=== PATIENT | female | born 1975 | race Caucasian/White ===

== ENCOUNTER 2016-05-13 22:26 | Emergency (ER) | payer OTHER ==
[2016-05-13 22:49] VITALS: BP 133/74; PULSE 92; TEMP 98; BMI 38.4
[2016-05-13] MEDS ORDERED: KETOROLAC TROMETHAMINE 60 MG/2 ML VIAL IM ONE (23:28)
[2016-05-13] MEDS ORDERED: KETOROLAC TROMETHAMINE 60 MG/2 ML VIAL ONE (23:35)
--- NOTE | 2016-05-14 00:48 | PDOC ---
History of Present Illness - General History Source: Patient Exam Limitations: No Limitations <Boris Morillo - Last Filed: 05/14/16 00:48> - General History Source: Patient Exam Limitations: No Limitations - History of Present Illness Initial Comments: 05/14/16 01:12 The patient is a 41 year old female, with a significant past medical history of scoliosis, kyphosis, sciatica, prior back surgeries, anxiety and depression, who presents to the emergency department with back pain which began last night but has progressively worsened throughout the day today. The patient reports that the pain abruptly yesterday in her lower back and radiates down her right leg. Patient states that these symptoms are consistent with her prior sciatica flare ups. The patient states that the pain is worse with flexion. The patient denies any numbness, tingling or weakness in the lower extremities. The patient denies fever or chills. Allergies: Naproxen, Vancomycin. Past Surgical History: Back surgeries. Social History: Current everyday smoker. Denies alcohol or drug use. PCP: Dr. Cosme <Anita Doran - Last Filed: 05/14/16 01:15> - General Chief Complaint: Pain, Acute Stated Complaint: PAIN Time Seen by Provider: 05/13/16 23:28 Past History - Psycho/Social/Smoking Cessation Hx Suicidal Ideation: No Smoking History: Current every day smoker Number of Cigarettes Smoked Daily: 20 Information on smoking cessation initiated: No Hx Alcohol Use: No Drug/Substance Use Hx: No <Boris Morillo - Last Filed: 05/14/16 00:48> <Anita Doran - Last Filed: 05/14/16 01:15> - Past Medical History Allergies/Adverse Reactions: Allergies Allergy/AdvReac Type Severity Reaction Status Date / Time naproxen [From Naprosyn] Allergy Verified 05/13/16 22:42 vancomycin Allergy Verified 05/13/16 22:39 Home Medications: Ambulatory Orders Escitalopram Oxalate [Lexapro -] 100 mg PO DAILY 05/13/16 Gabapentin [Neurontin] 600 mg PO BID 05/13/16 Trazodone HCl [Oleptro ER] 150 mg PO HS 05/13/16 Review of Systems - Review of Systems Able to Perform ROS?: Yes Comments:: 05/14/16 01:13 GENERAL/CONSTITUTIONAL: No fever or chills. No weakness. HEAD, EYES, EARS, NOSE AND THROAT: No change in vision. No ear pain or discharge. No sore throat. CARDIOVASCULAR: No chest pain or shortness of breath. RESPIRATORY: No cough, wheezing, or hemoptysis. GASTROINTESTINAL: No nausea, vomiting, diarrhea or constipation. GENITOURINARY: No dysuria, frequency, or change in urination. MUSCULOSKELETAL: +Back pain. No joint or muscle swelling or pain. No neck pain. SKIN: No rash. NEUROLOGIC: No headache, vertigo, loss of consciousness, or change in strength/ sensation. ENDOCRINE: No increased thirst. No abnormal weight change. HEMATOLOGIC/LYMPHATIC: No anemia, easy bleeding, or history of blood clots. ALLERGIC/IMMUNOLOGIC: No hives or skin allergy. <Anita Doran - Last Filed: 05/14/16 01:15> *Physical Exam - Vital Signs Last Vital Signs Temp Pulse Resp BP Pulse Ox 98.0 F 92 H 12 133/74 97 05/13/16 22:42 05/13/16 22:42 05/13/16 22:42 05/13/16 22:42 05/13/16 22:42 <Boris Morillo - Last Filed: 05/14/16 00:48> - Vital Signs Last Vital Signs Temp Pulse Resp BP Pulse Ox 98.0 F 92 H 12 133/74 97 05/13/16 22:42 05/13/16 22:42 05/13/16 22:42 05/13/16 22:42 05/13/16 22:42 - Physical Exam Comments: 05/14/16 01:13 GENERAL: Awake, alert, and fully oriented, in no acute distress. HEAD: No signs of trauma. EYES: PERRLA, EOMI, sclera anicteric, conjunctiva clear. ENT: Auricles normal inspection, hearing grossly normal, nares patent, oropharynx clear without exudates. Moist mucosa. NECK: Normal ROM, supple, no lymphadenopathy, JVD, or masses. LUNGS: Breath sounds equal, clear to auscultation bilaterally. No wheezes, and no crackles. HEART: Regular rate and rhythm, normal S1 and S2, no murmurs, rubs or gallops. ABDOMEN: Soft, nontender, normoactive bowel sounds. No guarding, no rebound. No masses. MUSCULOSKELETAL: Lumbar tenderness to palpation. Right buttocks tenderness to palpation, consistent with her sciatica. EXTREMITIES: Normal range of motion, no edema. No clubbing or cyanosis. No cords , erythema, or tenderness. NEUROLOGICAL: Cranial nerves II through XII grossly intact. Normal speech, normal gait. SKIN: Warm, dry, normal turgor, no rashes or lesions noted. <Anita Doran - Last Filed: 05/14/16 01:15> ED Treatment Course - ADDITIONAL ORDERS Additional order review: Laboratory Results 05/13/16 22:50 Urine Color Cancelled Urine Appearance Cancelled Urine pH Cancelled Ur Specific [place] Cancelled Urine Protein Cancelled Urine Glucose (UA) Cancelled Urine Clinitest Cancelled Urine Ketones Cancelled Urine Blood Cancelled Urine Nitrite Cancelled Urine Bilirubin Cancelled Urine Ictotest Cancelled Prot Sulfosalicylic Acd Cancelled Urine Urobilinogen Cancelled Ur Leukocyte Esterase Cancelled Urine HCG, Qual Negative - Medications Given in the ED: ED Medications Discontinued Medications Generic Name Dose Route Start Last Admin Trade Name Freq PRN Reason Stop Dose Admin Ketorolac Tromethamine 60 mg 05/13/16 23:28 05/14/16 00:02 Toradol Injection - IM 05/13/16 23:29 60 mg ONCE ONE Administration <Boris Morillo - Last Filed: 05/14/16 00:48> - ADDITIONAL ORDERS Additional order review: Laboratory Results 05/13/16 22:50 Urine Color Cancelled Urine Appearance Cancelled Urine pH Cancelled Ur Specific [place] Cancelled Urine Protein Cancelled Urine Glucose (UA) Cancelled Urine Clinitest Cancelled Urine Ketones Cancelled Urine Blood Cancelled Urine Nitrite Cancelled Urine Bilirubin Cancelled Urine Ictotest Cancelled Prot Sulfosalicylic Acd Cancelled Urine Urobilinogen Cancelled Ur Leukocyte Esterase Cancelled Urine HCG, Qual Negative - Medications Given in the ED: ED Medications Discontinued Medications Generic Name Dose Route Start Last Admin Trade Name Freq PRN Reason Stop Dose Admin Ketorolac Tromethamine 60 mg 05/13/16 23:28 05/14/16 00:02 Toradol Injection - IM 05/13/16 23:29 60 mg ONCE ONE Administration <Anita Doran - Last Filed: 05/14/16 01:15> Medical Decision Making - Medical Decision Making 05/14/16 00:48 A portion of this note was documented by scribe services under my direction. I have reviewed the details of the note, within reason, and agree with the documentation with the following case summary and management plan written by me. Patient treated in the ED. Nursing notes are reviewed and incorporated into the medical decision-making. Vital signs reviewed. Peripheral IV access obtained by the nurse, laboratory studies are drawn and sent, reviewed and interpreted by myself. Vital Signs Temp Pulse Resp BP Pulse Ox 98.0 F 92 H 12 133/74 97 05/13/16 22:42 05/13/16 22:42 05/13/16 22:42 05/13/16 22:42 05/13/16 22:42 41 year old female with history of scoliosis, prior back surgeries, and sciatica. States that the pain worsened yesterday and worse with flexion. Pain starts in lower back and shoots to posterior R leg consistent with her sciatica. Patient reports that pain can occur without any obvious inciting factor. She reports that toradol works well for her in the past. Patient is NOT allergic to toradol. PGU negative. Pt given toradol and now feels significantly better. Will d/c. The patient has follow up with her doctors. I discussed the physical exam findings, ancillary test results and final diagnoses with the patient. I answered all of the patient's questions. The patient was satisfied with the care received and felt comfortable with the discharge plan and treatment plan. The patient will call their primary care physician within 24 hours to arrange follow-up and will return to the Emergency Department with any new, persistant or worsening symptoms. <Boris Morillo - Last Filed: 05/14/16 00:48> *DC/Admit/Observation/Transfer - Discharge Dispostion Admit: No <Boris Morillo - Last Filed: 05/14/16 00:48> - Attestations Scribe Attestion: 05/14/16 01:04 Documentation prepared by Anita Doran, acting as biomedical engineering aide for Boris Morillo MD. <Anita Doran - Last Filed: 05/14/16 01:15> Diagnosis at time of Disposition: Sciatica Qualifiers: Laterality: right Qualified Code(s): M54.31 - Sciatica, right side - Discharge Dispostion Disposition: HOME Condition at time of disposition: Improved - Referrals Referrals: Abdi Cosme MD [Primary Care Provider] - - Patient Instructions Printed Discharge Instructions: DI for Sciatica, DI for Back Pain With Sciatica Additional Instructions: It was a pleasure meeting you. Please feel better. Follow up with your back doctors. Call to schedule an appointment.
== END 2016-05-14 00:57 | disposition home or self-care (01) ==
LOC: JER 22:26
PROC: 3E0233Z Introduction of Anti-inflammatory into Muscle, Percutaneous Approach (ICD-10-PCS; principal; 2016-05-13)
DX: M54.41 Lumbago with sciatica, right side (principal); F17.210 Nicotine dependence, cigarettes, uncomplicated; Z87.39 Personal history of other diseases of the musculoskeletal system and connective tissue
CPT/HCPCS: 81003; 84703; 96372; 99281-25; 99282-25

== ENCOUNTER 2018-07-10 08:47 | Emergency (ER) | payer OTHER ==
[2018-07-10 09:34] VITALS: TEMP 98.3; BMI 34.7
--- NOTE | 2018-07-10 09:39 | PDOC ---
History of Present Illness - General Chief Complaint: Vaginal Bleeding Stated Complaint: BLEEDING Time Seen by Provider: 07/10/18 09:02 History Source: Patient Exam Limitations: No Limitations - History of Present Illness Initial Comments: 07/10/18 12:37 Pt is a 43yo F with PMH of anxiety presenting to ED for heavy bleeding today from 6am to 9am using 10 pads. Is saturating pads and is seeing clots. Also experiencing lower abdominal cramping. She had similar symptoms last month on the first day of her period but it did not bleed as much as today. She endorses lighheadedness and nausea. Denies palpitations, syncope, chest pain, sob, injuries, vaginal discharge, fevers, chills. Sister has fibroids. No clotting or bleeding d/o in the family. PMD: [facility] OBGYN: [facility] PMH: see hpi PSH: tubal ligation Meds: see med rec Allergies: vanc, naproxen Social: denies Past History - Past Medical History Allergies/Adverse Reactions: Allergies Allergy/AdvReac Type Severity Reaction Status Date / Time naproxen [From Naprosyn] Allergy Verified 07/10/18 09:04 vancomycin Allergy Verified 07/10/18 09:04 Home Medications: Ambulatory Orders Escitalopram Oxalate [Lexapro -] 100 mg PO DAILY 05/13/16 Gabapentin [Neurontin] 600 mg PO BID 05/13/16 Trazodone HCl [Oleptro ER] 150 mg PO HS 05/13/16 Ferrous Sulfate 325 mg PO DAILY #7 tablet 07/10/18 Tramadol HCl 50 mg PO BID #4 tablet MDD 2 07/10/18 COPD: No Psychiatric Problems: Yes (anxiety,) Other medical history: fibromyalgia - Suicide/Smoking/Psychosocial Hx Smoking History: Current every day smoker Number of Cigarettes Smoked Daily: 20 Information on smoking cessation initiated: No Hx Alcohol Use: No Drug/Substance Use Hx: No Review of Systems - Review of Systems Constitutional: No: Symptoms Reported HEENTM: No: Symptoms Reported Respiratory: No: SOB with Exertion Cardiac (ROS): Yes: Lightheadedness ABD/GI: Yes: Abdominal cramping : Yes: Symptoms Reported, See HPI Musculoskeletal: Yes: Back Pain Integumentary: No: Symptoms Reported Neurological: No: Symptoms reported *Physical Exam - Vital Signs Last Vital Signs Temp Pulse Resp BP Pulse Ox 98.3 F 87 16 123/76 100 07/10/18 09:15 07/10/18 09:15 07/10/18 09:15 07/10/18 09:15 07/10/18 09:15 - Physical Exam General Appearance: Yes: Nourished, Appropriately Dressed, Moderate Distress HEENT: positive: EOMI, STEFF. negative: Pale Conjunctivae Neck: positive: Trachea midline, Supple. negative: Lymphadenopathy (R), Lymphadenopathy (L) Respiratory/Chest: positive: Lungs Clear, Normal Breath Sounds Cardiovascular: positive: Regular Rhythm, Regular Rate, S1, S2. negative: Edema , JVD, Murmur Gastrointestinal/Abdominal: positive: Normal Bowel Sounds, Soft, Tenderness ( suprapubic, LLQ) Musculoskeletal: negative: CVA Tenderness Extremity: positive: Normal Capillary Refill, Pelvis Stable. negative: Pedal Edema, Swelling Integumentary: positive: Normal Color, Dry, Warm. negative: Pale Neurologic: positive: contracting support specialist II-XII NML intact, Fully Oriented, Alert, Normal Mood/ Affect, Normal Response, Motor Strength 5/5 Moderate Sedation - Procedure Monitoring Vital Signs: Procedure Monitoring Vital Signs Temperature 98.3 F 07/10/18 09:15 Pulse Rate 87 07/10/18 09:15 Respiratory Rate 16 07/10/18 09:15 Blood Pressure 123/76 07/10/18 09:15 O2 Sat by Pulse Oximetry (%) 100 07/10/18 09:15 ED Treatment Course - LABORATORY CBC & Chemistry Diagram: 07/10/18 09:34 07/10/18 09:34 Medical Decision Making - Medical Decision Making 07/11/18 22:20 Pt is a 43yo F with PMH of anxiety presenting to ED for heavy bleeding today from 6am to 9am using 10 pads. Is saturating pads and is seeing clots. Also experiencing lower abdominal cramping. She had similar symptoms last month on the first day of her period but it did not bleed as much as today. She endorses lighheadedness and nausea. Denies palpitations, syncope, chest pain, sob, injuries, vaginal discharge, fevers, chills. Sister has fibroids. No clotting or bleeding d/o in the family. Vitals: wnl PE: heavy vaginal bleeding as seen in pads. Pt did not want pelvic exam due to bleeding. suprapubic and LLQ abdominal tenderness. ddx includes but not limited to ectopic , spontaneous , fibroids, uterine pathology, bleeding disorder -low suspicion for infectious processes. -cbc, cmp, serum , cogas, t+s -tvus -zofran hgb 14. not . TVUS shows [id number] mass could be leiomyoma v. other pathology. Called Dr. Garrison office, Dr conical mixer recommended iron pills and f/u in office. Per pt mom, pt is bleeding less now. Will give tramadol for pain and iron pills. Pt has appt in the morning. Can be dc home. given return precautions. 07/11/18 22:22 *DC/Admit/Observation/Transfer Diagnosis at time of Disposition: Vaginal bleeding - Discharge Dispostion Disposition: HOME Condition at time of disposition: Good Decision to Admit order: No - Prescriptions Prescriptions: Ferrous Sulfate 325 mg PO DAILY #7 tablet Tramadol HCl 50 mg PO BID #4 tablet MDD 2 - Referrals Referrals: Abdi Cosme MD [Non Staff, Medical] - Daniel Del Rosario MD [Staff Physician] - - Patient Instructions Printed Discharge Instructions: DI for Vaginal Bleeding Additional Instructions: You were seen in the emergency room today for vaginal bleeding. This is most likely caused by a growth in the uterus. Please make sure you make an appointment with your SECURITY SALES CONSULTANT. Keep your appointment for tomorrow. A prescription for a pain medication and for iron pills was sent to your pharmacy. Please take as directed. Come back to the emergency room if bleeding gets worse, you feel lightheaded, you pass out or if any new concerning symptom develops. Thank you - Post Discharge Activity
[2018-07-10 09:43] LABS: BASO % 0.8 % (0-2.0); EOS % 8.4 % (0-4.5); HEMATOCRIT 40.5 % (32.4-45.2); LYMPH % 20.2 % (8-40); MCH 32.4 pg (25.7-33.7); MCHC 34.6 g/dl (32.0-36.0); MEAN CELL VOLUME 93.7 fl (80-96); MEAN PLT VOLUME 8.3 fl (7.5-11.1); MONO % 6.8 % (3.8-10.2); NEUT % 63.8 % (42.8-82.8); PLATELET COUNT 235 K/MM3 (134-434); RBC 4.33 M/mm3 (3.60-5.2); RDW 13.4 % (11.6-15.6); WHITE BLOOD COUNT 10.1 K/mm3 (4.0-10.0)
[2018-07-10 09:55] LABS: INR 1.02 (0.83-1.09)
[2018-07-10 09:58] LABS: ACTIVATED PTT 33.2 SECONDS (25.2-36.5)
[2018-07-10 10:22] LABS: ALBUMIN 3.7 g/dl (3.4-5.0); ALK PHOS 72 U/L (45-117); ANION GAP 8 MMOL/L (8-16); BILIRUBIN,TOTAL 0.4 mg/dL (0.2-1); BLOOD UREA NITROGEN 14 mg/dL (7-18); CALCIUM 8.7 mg/dL (8.5-10.1); CHLORIDE 111 mmol/L (98-107); CO2 21 mmol/L (21-32); CREATININE 0.7 mg/dL (0.55-1.3); GLUCOSE,RANDOM 91 mg/dL (74-106); POTASSIUM 4.1 mmol/L (3.5-5.1); SGOT/AST 19 U/L (15-37); SGPT/ALT 17 U/L (13-61); SODIUM 140 mmol/L (136-145); TOT PROT 7.2 g/dl (6.4-8.2)
[2018-07-10] MEDS ORDERED: ONDANSETRON 4 MG/2 ML VIAL IVPB ONE (11:21)
[2018-07-10] MEDS ORDERED: ONDANSETRON 4 MG/2 ML VIAL ONE (11:24)
[2018-07-10] MEDS ORDERED: traMADol HCL 50 MG TABLET PO ONE (13:03)
[2018-07-10] MEDS ORDERED: traMADol HCL 50 MG TABLET ONE (13:07)
[2018-07-10 13:37] VITALS: BP 120/70; PULSE 90
== END 2018-07-10 13:47 | disposition home or self-care (01) ==
LOC: JER 08:47
PROC: 3E033GC Introduction of Other Therapeutic Substance into Peripheral Vein, Percutaneous Approach (ICD-10-PCS; principal; 2018-07-10)
DX: N93.8 Other specified abnormal uterine and vaginal bleeding (principal); M79.7 Fibromyalgia
CPT/HCPCS: 36415; 76830-TC; 80053; 84703; 85025; 85610; 85730; 96374; 99283-25

== ENCOUNTER 2019-02-07 21:23 | Emergency (ER) | payer OTHER ==
[2019-02-07 21:33] VITALS: BMI 34.6
--- NOTE | 2019-02-07 21:35 | PDOC ---
Rapid Medical Evaluation Chief Complaint: Allergic Reaction Time Seen by Provider: 02/07/19 21:30 Medical Evaluation: Allergies Allergy/AdvReac Type Severity Reaction Status Date / Time naproxen [From Naprosyn] Allergy Verified 07/10/18 09:04 vancomycin Allergy Verified 07/10/18 09:04 02/07/19 21:31 I have performed a brief in-person evaluation of this patient. The patient presents with a chief complaint of: acute allergic reaction to zithromax, onset within 30mins Pertinent physical exam findings: Itching, hives generalized - some wheezing I have ordered the following: taken to emergency room for immediate eval and treatment The patient will proceed to the ED for further evaluation. Discharge Disposition - Diagnosis Allergic reaction caused by a drug - Referrals - Patient Instructions - Post Discharge Activity
[2019-02-07] MEDS ORDERED: methylPREDNISolone NA SUCC 125 MG/2 ML VIAL IVPB ONE (21:39)
[2019-02-07] MEDS ORDERED: SODIUM CHLORIDE 0.9% 500 ML INFUS.BAG IV ONE (21:42)
--- NOTE | 2019-02-07 21:45 | PDOC ---
Attending Attestation - Resident Resident Name: Rolando Maki - ED Attending Attestation I have performed the following: I have examined & evaluated the patient, The case was reviewed & discussed with the resident, I agree w/resident's findings & plan, Exceptions are as noted - HPI HPI: 02/07/19 21:41 44y F fibromyalgia presents with suspected allergic reaction. Pt was her PMDs office with complaints of a cough for 2 days assoc with subjective fever and nasal congestion, was given a dose of IV abx and sent home. At home pt started having some itching, took benadryl with some improvement. Pt took azythromycin at home prior to arrival with itching/rash on her torso/chest/arm and came to the ED for evaluation. The patient was noted to be significantly tachycardic in triage and brought back to the ED immediately. Pt denies any sob, voice changes , cp, vomiting, abd pain, coughing. Pt with prior history of allergy to vancomycin where she turns red and there is mild swelling. PMD Rajinder - Physicial Exam PE: 02/07/19 21:59 Physical Exam: GENERAL: The patient is awake, alert, and fully oriented, Nontoxic - in no acute distress. HEAD: Normocephalic, atraumatic. EYES: extraocular movements intact, sclera anicteric, conjunctiva clear. ENT: Normal voice, Moist mucous membranes. airway patent NECK: Normal range of motion, supple LUNGS: scattered wheeze on the L lung, but clear otherwise, no acute respiratory distress HEART: tachycardic, normal S1 and S2 without murmur, rub or gallop. ABDOMEN: Soft, nontender, No guarding, no rebound. No CVA tenderness EXTREMITIES: Normal range of motion, no edema. NEUROLOGICAL: No facial assymetry, Normal speech, PSYCH: Normal mood, normal affect. SKIN: erythemadous plaques on chest/back, L arm - Critical Care Time Total Critical Care Time: 45 Critical Care Statement: The care of this patient involved high complexity decision making to prevent further life threatening deterioration of the patient 's condition and/or to evaluate & treat vital organ system(s) failure or risk of failure. - Medical Decision Making 02/07/19 21:59 A&P suspect allergic reaction - primaryl cutaneous - will give solumedrol/pepcid /bandryl, will give fluids placed on historical manuscripts curator will obtin labs, cxr to eval for pna consider dc azithromycin vs change abx - but suspect her cough may be viral with cough w 02/07/19 23:13 pt doing well pts cxr noted for very mild blunting of LLL - will change her meds to augmentin
--- NOTE | 2019-02-07 21:48 | PDOC ---
History of Present Illness - General Chief Complaint: Allergic Reaction Stated Complaint: ALLERGIC REACTION Time Seen by Provider: 02/07/19 21:30 - History of Present Illness Initial Comments: The pt is a 44F w/ a history of fibromyalgia who presents for evaluation of rash and itching s/p azithromycin. The pt was seen in Dr. Calvillo's office was given an IV abx and sent home with a prescription for azithromycin. The pt took an initial does, had a rash with itching, called Dr. Calvillo's office, took Benadryl and had resolution of symptoms. She took her second dose this evening, had repeat rash, and decided to present to the ED. She denies trouble breathing , difficulty swallowing, or chest tightness. She endorses an allergy to Vanc and naproxen. 02/07/19 21:42 02/07/19 21:48 Past History - Past Medical History Allergies/Adverse Reactions: Allergies Allergy/AdvReac Type Severity Reaction Status Date / Time naproxen [From Naprosyn] Allergy Verified 07/10/18 09:04 vancomycin Allergy Verified 07/10/18 09:04 Home Medications: Ambulatory Orders Escitalopram Oxalate [Lexapro -] 100 mg PO DAILY 05/13/16 Gabapentin [Neurontin] 600 mg PO BID 05/13/16 Trazodone HCl [Oleptro ER] 150 mg PO HS 05/13/16 Ferrous Sulfate 325 mg PO DAILY #7 tablet 07/10/18 Tramadol HCl 50 mg PO BID #4 tablet MDD 2 07/10/18 Amoxicillin/Potassium Clav [Augmentin 875-125 Tablet] 1 each PO BID 5 Days #10 tablet 02/07/19 COPD: No Psychiatric Problems: Yes (anxiety,) - Psycho Social/Smoking Cessation Hx Smoking History: Current every day smoker Number of Cigarettes Smoked Daily: 20 Information on smoking cessation initiated: No Hx Alcohol Use: No Drug/Substance Use Hx: No Review of Systems - Review of Systems Able to Perform ROS?: Yes Comments:: GENERAL/CONSTITUTIONAL: +several days of fever; No weakness HEAD, EYES, EARS, NOSE AND THROAT: No change in vision. No change in hearing. No sore throat CARDIOVASCULAR: No chest pain or shortness of breath RESPIRATORY: +cough; Denies hemoptysis GASTROINTESTINAL: No nausea, vomiting, diarrhea or constipation GENITOURINARY: No dysuria, frequency, or change in urination MUSCULOSKELETAL: No joint or muscle swelling or pain. No neck or back pain SKIN: diffuse rash NEUROLOGIC: No headache, vertigo, loss of consciousness, or change in strength/ sensation ENDOCRINE: No increased thirst. No abnormal weight change HEMATOLOGIC/LYMPHATIC: No anemia, easy bleeding, or history of blood clots ALLERGIC/IMMUNOLOGIC: rash after taking azithromycin 02/07/19 21:46 Is the patient limited [place] proficient: No *Physical Exam - Vital Signs Last Vital Signs Temp Pulse Resp BP Pulse Ox 98.2 F 144 H 19 117/72 99 02/07/19 21:31 02/07/19 21:31 02/07/19 21:31 02/07/19 21:31 02/07/19 21:31 - Physical Exam Comments: GENERAL: Awake, alert, and oriented to person/place/time, in no acute distress HEAD: No signs of trauma, normocephalic, atraumatic EYES: PERRLA, EOMI, sclera anicteric, conjunctiva clear ENT: Hearing grossly normal, nares patent, oropharynx clear without exudates or edema. No uvular deviation. Moist mucosa LUNGS: No distress, speaks in full sentences, slight scatter wheeze heard LLL HEART: Tachycardic rate with regular rhythm, normal S1 and S2, no murmurs appreciated, peripheral pulses normal and equal bilaterally ABDOMEN: Soft, nontender, normoactive bowel sounds. No guarding, no rebound EXTREMITIES: Normal inspection, Normal range of motion, no edema. No clubbing or cyanosis NEUROLOGICAL: Cranial nerves II through XII grossly intact. Normal speech, normal gait, no focal sensorimotor deficits SKIN: urticarial rash noted over RUE, mildly BLE, chest, abdomen, and back 02/07/19 21:47 ED Treatment Course - LABORATORY CBC & Chemistry Diagram: 02/07/19 21:49 02/07/19 21:49 Medical Decision Making - Medical Decision Making The pt is a 44F w/ a history of fibromyalgia and recent fevers/cough who presents for rash and itching s/p azithromycin this evening ED Course Labs sent Benadryl, Pepcid, Solumedrol, and IVF for symptomatic relief CXR to evaluate for PNA 02/07/19 22:08 Pt w/ persistent mild L wheeze and questionable opacity in LLL -Will give Augmentin for CAP, and observe for reaction Pt feels improved at this time, no longer has itching, and rash is improving No anemia Lytes unremarkable LFTs wnl No ENDER 02/07/19 23:16 Pt continues to feel improved and does not have recurrent symptoms s/p Augmentin Rx for abx sent to pt's pharmacy Plan for D/C w/ PCP f/u Discharge instructions and return precautions given Patient in agreement and verbalized understanding Dispo: Home 02/07/19 23:42 Discharge - Discharge Information Problems reviewed: Yes Clinical Impression/Diagnosis: Allergic reaction caused by a drug Qualifiers: Encounter type: initial encounter Qualified Code(s): T78.40XA - Allergy, unspecified, initial encounter Pneumonia Qualifiers: Pneumonia type: due to unspecified organism Laterality: left Lung location: lower lobe of lung Qualified Code(s): J18.1 - Lobar pneumonia, unspecified organism Condition: Improved - Admission No - Additional Discharge Information Prescriptions: Amoxicillin/Potassium Clav [Augmentin 875-125 Tablet] 1 each PO BID 5 Days #10 tablet - Follow up/Referral Referrals: Lui Calvillo MD [Primary Care Provider] - - Patient Discharge Instructions Patient Printed Discharge Instructions: DI for Pneumonia -- Adult, DI for Adverse Drug Reaction -- Allergic Additional Instructions: You were seen in the Emergency Department for evaluation of an allergic reaction and pneumonia. You were treated with benadryl, pepcid, steroids, and fluids. Continue to take Benadryl 25mg every 6 hours until your symptoms resolve. A prescription was sent to your pharmacy for Augmentin, take twice a day for the next 5 days. Review the handout provided at discharge. Follow up with your primary care provider within a week. Return to the Emergency Department if you develop fevers despite tylenol use, chest pain, trouble breathing, throat tightness, trouble/pain with swallowing, nausea/vomiting, worsening symptoms, or any new/concerning symptoms. - Post Discharge Activity
[2019-02-07] MEDS ORDERED: FAMOTIDINE 20 MG/50 ML IVPB 20 MG/50 ML MG IVPB ONE ×2 (21:49→22:06)
[2019-02-07] MEDS ORDERED: methylPREDNISolone NA SUCC 125 MG/2 ML VIAL ONE (21:51)
[2019-02-07 21:57] LABS: BASO % 0.3 % (0-2.0); EOS % 1.9 % (0-4.5); HEMATOCRIT 44.9 % (32.4-45.2); HEMOGLOBIN 14.8 GM/dL (10.7-15.3); LYMPH % 11.1 % (8-40); MCH 25.2 pg (25.7-33.7); MCHC 32.9 g/dl (32.0-36.0); MEAN CELL VOLUME 76.6 fl (80-96); MEAN PLT VOLUME 7.9 fl (7.5-11.1); MONO % 2.6 % (3.8-10.2); NEUT % 84.1 % (42.8-82.8); PLATELET COUNT 291 K/MM3 (134-434); RBC 5.87 M/mm3 (3.60-5.2); WHITE BLOOD COUNT 10.4 K/mm3 (4.0-10.0)
[2019-02-07 22:30] LABS: ALBUMIN 3.8 g/dl (3.4-5.0); BILIRUBIN,TOTAL 0.3 mg/dL (0.2-1); BLOOD UREA NITROGEN 8.1 mg/dL (7-18); CALCIUM 8.6 mg/dL (8.5-10.1); CREATININE 0.9 mg/dL (0.55-1.3); TOT PROT 7.3 g/dl (6.4-8.2)
[2019-02-07 22:31] LABS: POTASSIUM 4.2 mmol/L (3.5-5.1)
[2019-02-07 22:50] LABS: ANISOCYTOSIS 2+; PLATELET ESTIMATE NORMAL
[2019-02-07] MEDS ORDERED: AMOX TR/POT CLAV 875MG/125MG TABLETS (FP) PO ONE (23:08)
[2019-02-07] MEDS ORDERED: AMOX TR/POT CLAV 875MG/125MG TABLETS (FP) ONE (23:10)
[2019-02-07 23:49] VITALS: BP 115/63; PULSE 89; TEMP 98
== END 2019-02-08 | disposition home or self-care (01) ==
LOC: JER 21:23
PROC: 3E033GC Introduction of Other Therapeutic Substance into Peripheral Vein, Percutaneous Approach (ICD-10-PCS; principal; 2019-02-07)
PROC: 3E033GC Introduction of Other Therapeutic Substance into Peripheral Vein, Percutaneous Approach (ICD-10-PCS; 2019-02-07)
PROC: 3E0333Z Introduction of Anti-inflammatory into Peripheral Vein, Percutaneous Approach (ICD-10-PCS; 2019-02-07)
DX: L50.0 Allergic urticaria (principal); T36.3X5A Adverse effect of macrolides, initial encounter; J18.1 Lobar pneumonia, unspecified organism
CPT/HCPCS: 36415; 71045-TC-FY; 80053; 85025; 99283-25

== ENCOUNTER 2019-03-05 09:17 | Emergency (ER) | payer OTHER ==
[2019-03-05 09:28] VITALS: BP 121/80; PULSE 77; TEMP 97.9; BMI 34.6
[2019-03-05] MEDS ORDERED: KETOROLAC TROMETHAMINE 30 MG/1 ML VIAL IM ONE (09:50)
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
[2019-03-05] MEDS ORDERED: KETOROLAC TROMETHAMINE 30 MG/1 ML VIAL ONE (09:52)
== END 2019-03-05 10:47 | disposition home or self-care (01) ==
LOC: JERFT 09:17
PROC: 3E0233Z Introduction of Anti-inflammatory into Muscle, Percutaneous Approach (ICD-10-PCS; principal; 2019-03-05)
DX: M54.5 Low back pain (principal); M25.512 Pain in left shoulder; V49.49XA Driver injured in collision with other motor vehicles in traffic accident, initial encounter; Y92.414 Local residential or business street as the place of occurrence of the external cause; Y93.89 Activity, other specified; Y99.8 Other external cause status; M41.9 Scoliosis, unspecified; F41.9 Anxiety disorder, unspecified; Z88.5 Allergy status to narcotic agent; Z98.51 Tubal ligation status; Z90.710 Acquired absence of both cervix and uterus; Z88.1 Allergy status to other antibiotic agents; Z96.89 Presence of other specified functional implants
CPT/HCPCS: 72100-TC-FY; 73030-TC-LT-FY; 96372; 99281-25

== ENCOUNTER 2020-11-05 13:02 | Emergency (ER) | payer OTHER ==
[2020-11-05 13:20] VITALS: TEMP 97.9; BMI 38.9
[2020-11-05] MEDS ORDERED: ONDANSETRON 4 MG/2 ML VIAL IVPUSH ONE (13:42)
[2020-11-05] MEDS ORDERED: ACETAMINOPHEN 1000 MG/100 ML VIAL (NON FORMULARY) IVPB ONE (13:42)
[2020-11-05] MEDS ORDERED: SODIUM CHLORIDE 1,000 ML IV STA (13:42)
[2020-11-05] MEDS ORDERED: ACETAMINOPHEN INJECTION 100 ML IVPB ONE (14:10)
[2020-11-05] MEDS ORDERED: ONDANSETRON 4 MG/2 ML VIAL ONE (14:10)
[2020-11-05 14:23] LABS: BASO % 0.5 % (0-2.0); EOS % 2.5 % (0-4.5); HEMATOCRIT 44.9 % (32.4-45.2); LYMPH % 22.2 % (8-40); MCH 30.9 pg (25.7-33.7); MCHC 33.3 g/dl (32.0-36.0); MEAN CELL VOLUME 92.6 fl (80-96); MEAN PLT VOLUME 8.4 fl (7.5-11.1); MONO % 7.8 % (3.8-10.2); PLATELET COUNT 246 10^3/uL (134-434); RBC 4.85 M/mm3 (3.60-5.2); RDW 13.1 % (11.6-15.6); WHITE BLOOD COUNT 11.2 K/mm3 (4.0-10.0)
[2020-11-05 14:29] LABS: URINE APPEARANCE Clear; URINE BILIRUBIN 1+ (NEGATIVE); URINE COLOR Yellow; URINE GLUCOSE (UA) Negative (NEGATIVE); URINE KETONE Trace (NEGATIVE); URINE LEUK ESTERASE 2+ (NEGATIVE); URINE NITRITE Negative (NEGATIVE); URINE PROTEIN 1+ (NEGATIVE); URINE UROBILINOGEN 0.2 mg/dL (0.2-1.0)
[2020-11-05 14:37] LABS: HCG,QUALITATIVE URINE Negative
[2020-11-05 14:46] LABS: ALBUMIN 3.8 g/dl (3.4-5.0); BLOOD UREA NITROGEN 11.6 mg/dL (7-18); CALCIUM 8.9 mg/dL (8.5-10.1)
[2020-11-05 14:47] LABS: URINE BACTERIA FEW /uL (0-1359); URINE RBC 50-100 /uL (0-23.9); URINE WBC 50-100 /uL (0-25.8)
[2020-11-05 14:50] LABS: CREATININE 0.7 mg/dL (0.55-1.3)
[2020-11-05 14:51] LABS: BILIRUBIN,TOTAL 0.6 mg/dL (0.2-1); TOT PROT 7.4 g/dl (6.4-8.2)
[2020-11-05] MEDS ORDERED: morphine CARPU-JECT 2 MG/1 ML DISP.SYRIN IVPUSH ONE (17:10)
[2020-11-05] MEDS ORDERED: MORPHINE SULFATE 2 MG/ML VIAL ONE (17:17)
[2020-11-05 20:29] VITALS: BP 134/86; PULSE 85
== END 2020-11-05 19:45 | disposition left against medical advice (07) ==
LOC: JER 13:02
PROC: 3E033NZ Introduction of Analgesics, Hypnotics, Sedatives into Peripheral Vein, Percutaneous Approach (ICD-10-PCS; principal; 2020-11-05)
PROC: 3E033GC Introduction of Other Therapeutic Substance into Peripheral Vein, Percutaneous Approach (ICD-10-PCS; 2020-11-05)
PROC: 3E0337Z Introduction of Electrolytic and Water Balance Substance into Peripheral Vein, Percutaneous Approach (ICD-10-PCS; 2020-11-05)
PROC: 3E03329 Introduction of Other Anti-infective into Peripheral Vein, Percutaneous Approach (ICD-10-PCS; 2020-11-05)
DX: N83.201 Unspecified ovarian cyst, right side (principal); N83.202 Unspecified ovarian cyst, left side; N30.00 Acute cystitis without hematuria
CPT/HCPCS: 36415; 74177-TC; 76830-TC; 80053; 81003; 84703; 85025; 87086; 87186; 96361; 96365; 96375; 99285-25; J0131; Q9967

== ENCOUNTER 2021-08-07 15:10 | Emergency (ER) | payer OTHER ==
[2021-08-07 15:32] VITALS: BP 125/78; PULSE 101; TEMP 98; BMI 38.2
[2021-08-07] MEDS ORDERED: DIPHTH,PERTUSS(ACELL),TET 0.5 ML DISP.SYRIN IM ONE ×2 (16:00→16:10)
== END 2021-08-07 16:45 | disposition home or self-care (01) ==
LOC: JERFT 15:10
PROC: 3E0234Z Introduction of Serum, Toxoid and Vaccine into Muscle, Percutaneous Approach (ICD-10-PCS; principal; 2021-08-07)
DX: S60.351A Superficial foreign body of right thumb, initial encounter (principal); Y99.9 Unspecified external cause status
CPT/HCPCS: 90471; 90715; 99282-25

== ENCOUNTER 2021-09-26 13:24 | Emergency (ER) | payer OTHER ==
[2021-09-26 13:34] VITALS: BP 134/77; PULSE 94; TEMP 98.9; BMI 32.0
[2021-09-26] MEDS ORDERED: predniSONE 20 MG TABLET (UD) PO ONE (14:20)
[2021-09-26] MEDS ORDERED: predniSONE 20 MG TABLET (UD) ONE (14:37)
[2021-09-26] MEDS ORDERED: ALBUTEROL SO4 2.5/IPRATROPIUM 0.5 INH SOL 3 ML VIAL.NEB. NEB ONE ×2 (14:38→14:44)
[2021-09-26] MEDS: ALBUTEROL SO4 2.5/IPRATROPIUM 0.5 INH SOL 3 ML VIAL.NEB. NEB SCH ×4 (14:48→15:45)
== END 2021-09-26 16:01 | disposition home or self-care (01) ==
LOC: JER 13:24
PROC: 3E0F7GC Introduction of Other Therapeutic Substance into Respiratory Tract, Via Natural or Artificial Opening (ICD-10-PCS; principal; 2021-09-26)
DX: J45.21 Mild intermittent asthma with (acute) exacerbation (principal); J06.9 Acute upper respiratory infection, unspecified
CPT/HCPCS: 94640; 99285-25